=== PATIENT | female | born 2000 | race Caucasian/White ===

== ENCOUNTER 2021-08-22 21:50 | Emergency (ER) | payer BC, OTHER ==
[~2021-08-22] VITALS: Ht 172.7 cm; Wt 93.0 kg
[2021-08-22 22:10] VITALS: BP 140/80
--- NOTE | 2021-08-22 22:17 | NUR ---
PATIENT W/C TO BED 9
[2021-08-22] MEDS ORDERED: IBUP-2218 PO (23:02)
[2021-08-22] MEDS ORDERED: HYDR-5080 PO (23:02)
[2021-08-22] MEDS ORDERED: CRUT1EAC3 MC (23:02)
[2021-08-22] MEDS: HYDROcodone/APAP 5/325 MG 1 TAB TAB PO ONE ×2 (23:17→23:25)
[2021-08-22 23:53] VITALS: BP 132/72
--- NOTE | 2021-08-22 23:57 | NUR ---
PATIENT ALERT ORIENT NO COMPLAINING OF PAIN VITAL SIGNS IN NORMAL LIMITS DC HOME ALONG WITH HER MOTHER ALL DC INSTRUCTION WAS GAVE ALONG WITH PRESCRIPTION NORCOT 5/375 PATIENT WAS STABLE AT THE MOMENT OF HER DEPARTURE
== END 2021-08-22 23:52 | disposition home or self-care (01) ==
LOC: MED 21:50
DX: S82.871A Displaced pilon fracture of right tibia, initial encounter for closed fracture (principal); X58.XXXA Exposure to other specified factors, initial encounter; Y93.89 Activity, other specified; Y92.89 Other specified places as the place of occurrence of the external cause; Y99.8 Other external cause status
CPT/HCPCS: 29515; 73610; 99283; Q0092